=== PATIENT | female | born 1975 | race Asian ===

== ENCOUNTER 2025-01-13 10:20 | Day surgery (SDC) | payer BC, SELFPAY ==
[2025-01-13] VITALS (10 sets, daily range): BP systolic 126–151; BP diastolic 81–100; PULSE 68–81; RESP 14–20; TEMP 36.5; O2SAT 94–100; BMI 39.6
[2025-01-13] MEDS: DiphenhydrAMINE INJ 50 MG/ML VIAL 25 MG IV (12:20)
[2025-01-13] MEDS: SODIUM CHLORIDE 0.9% 500 ML 500 ML 20 ML IV (12:20)
[2025-01-13] MEDS: fentaNYL CIT INJ 50 mCg/ML AMP 2ML (ASD USE ONLY) IV (12:23)
[2025-01-13] MEDS: MIDAZOLAM INJ 1 MG/ML VIAL 2 ML (ASD USE ONLY) 2 MG IV (12:23)
--- NOTE | 2025-01-13 12:34 | SUR.PHASEII ---
1234: pt received from OR via [employer]. received report from ASHLEY Moore. pt awake but drifts back to sleep. denies any pain or discomfort. no s/s of resp. distress or discomfort. noted having flatus.
--- NOTE | 2025-01-13 12:52 | SUR.PHASEII ---
1252: able to drink juice without any difficulty.
--- NOTE | 2025-01-13 13:05 | SUR.PHASEII ---
1305: pt able to ambulate with assist to the bathroom.
== END 2025-01-13 13:20 | disposition home or self-care (01) ==
PROVIDERS: PCP Internal Medicine; Referring Provider Specialist; Visit Provider Specialist
PROC: 0DBE8ZX Excision of Large Intestine, Via Natural or Artificial Opening Endoscopic, Diagnostic (ICD-10-PCS; CPT 45380; principal; 2025-01-13 12:45)
DX: Z12.11 Encounter for screening for malignant neoplasm of colon (principal); K64.9 Unspecified hemorrhoids
CPT/HCPCS: 45378; 81025; J1200; J2250; J3010; J7040

== ENCOUNTER → 2025-04-12 | Outpatient (CLI) | payer BC, SELFPAY ==
--- NOTE | 2025-04-12 15:27 | XR_ITS ---
Examination: PA lateral chest 2 views TECHNIQUE: Upright PA lateral chest 2 views Date and time: April 12, 2025 1546 hours Comparison 07/16/2018 INDICATIONS: Diagnosis coccidiomycosis coughing 2 months FINDINGS: Normal heart size Lungs are clear. The osseous structures are intact IMPRESSION: No active disease
== END | disposition home or self-care (01) ==
PROVIDERS: PCP Internal Medicine; Referring Provider Internal Medicine; Visit Provider Internal Medicine
DX: R05.1 Acute cough (principal)
CPT/HCPCS: 71046

== ENCOUNTER → 2025-04-14 | Outpatient (CLI) | payer BC, SELFPAY ==
--- NOTE | 2025-04-14 10:45 | XR_ITS ---
Examination: Screening digital mammography, bilateral Computer aided detection 3-D breast Tomosynthesis, bilateral Date and time of exam: April 14, 2025 1024 hours Compared to mammograms dating to August 13, 2018 Indication: Screening Technique: Nonmagnified MLO, CC views of the breasts to been obtained, reconstructed from 3-D Tomosynthesis images. R2 computer aided detection program utilized for evaluation of suspicious masses and/or abnormal calcifications. 3-D Tomosynthesis images obtained. Findings: Scattered areas of fibroglandular density. Benign calcifications. No interval suspicious masses. Impression: BI-RADS category II: Benign Findings. Recommend 1 year follow-up mammogram.
== END | disposition home or self-care (01) ==
LOC: CDIM 10:04
PROVIDERS: PCP Internal Medicine; Referring Provider Internal Medicine; Visit Provider Internal Medicine
DX: Z12.31 Encounter for screening mammogram for malignant neoplasm of breast (principal); R92.323 Mammographic fibroglandular density, bilateral breasts; R92.1 Mammographic calcification found on diagnostic imaging of breast
CPT/HCPCS: 77063; 77067